=== PATIENT | female | born 1965 | race Caucasian/White ===

== ENCOUNTER → 2018-06-11 13:46 | Outpatient (CLI) | payer OTHER, SELFPAY ==
--- OUTSIDE RECORDS SUMMARY | 2018-09-13 01:32 | XMS RPT_ITS ---
:1965 Author Organization OHIP Support Name Relationship Address Phone [facility] Unavailable [address] + [place] [address] EM DANIS Unavailable [address] + [place] [address] HOOK DANIS Unavailable [address] + [place] [address] EM JENNI Unavailable [address] + [place] [address] EM RAYCE Unavailable [address] + [place] [address] LORIE GUZMAN Unavailable [address] + [place] [address] EM DANIS Unavailable [address] + [place] [address] HOOK, JENNI Unavailable [address] + [place] [address] EM, RAYCE Unavailable [address] + [place] [address] LORIE GUZMAN Unavailable [address] + [place] [address] EM, DANIS Unavailable [address] + [place] [address] EM, JENNI Unavailable [address] + [place] [address] EM, RAYCE Unavailable [address] + [place] [address] JANETT GUZMANE Unavailable [address] + [place] [address] HOOK, DANIS Unavailable [address] + [place] [address] HOOK, JENNI Unavailable [address] + [place] [address] HOOK, RAYCE Unavailable [address] + [place] [address] JANETT GUZMANE Unavailable [address] + [place] [address] HOOK, DANIS Unavailable [address] + [place] [address] HOOK, JENNI Unavailable [address] + [place] [address] HOOK, RAYCE Unavailable [address] + [place] [address] CORNELIUS GUZMANZIE Unavailable [address] + [place] [address] HOOK, DANIS Unavailable [address] + [place] [address] HOOK, JENNI Unavailable [address] + [place] [address] HOOK, RAYCE Unavailable [address] + [place] [address] LORIE GUZMAN Unavailable [address] + [place] [address] HOOK, DANIS Unavailable [address] + [place] [address] HOOK, JENNI Unavailable [address] + [place] [address] HOOK, RAYCE Unavailable [address] + [place] [address] CORNELIUS GUZMANZIE Unavailable [address] + [place] [address] HOOK, DANIS Unavailable [address] + [place] [address] HOOK, JENNI Unavailable [address] + [place] [address] HOOK, RAYCE Unavailable [address] + [place] [address] LORIE GUZMAN Unavailable [address] + [place] [address] HOOK, DANIS Unavailable [address] + [place] [address] HOOK, JENNI Unavailable [address] + [place] [address] HOOK, RAYCE Unavailable [address] + [place] [address] LORIE GUZMAN Unavailable [address] + [place] [address] HOOK, DANIS Unavailable [address] + [place] [address] HOOK, JENNI Unavailable [address] + [place] [address] HOOK, RAYCE Unavailable [address] + [place] [address] LORIE GUZMAN Unavailable [address] + [place] [address] HOOK, DANIS Unavailable [address] + [place] [address] HOOK, JENNI Unavailable [address] + [place] [address] HOOK, RAYCE Unavailable [address] + [place] [address] LORIE GUZMAN Unavailable [address] + [place] [address] HOOK, DANIS Unavailable [address] + [place] [address] HOOK, JENNI Unavailable [address] + [place] [address] EM, RAYCE Unavailable [address] + [place] [address] LORIE GUZMAN Unavailable [address] + [place] [address] HOOK, DANIS Unavailable [address] + [place] [address] HOOK, JENNI Unavailable [address] + [place] [address] HOOK, RAYCE Unavailable [address] + [place] [address] CORNELIUS GUZMANZIE Unavailable [address] + [place] [address] HOOK, DANIS Unavailable [address] + [place] [address] HOOK, JENNI Unavailable [address] + [place] [address] HOOK, RAYCE Unavailable [address] + [place] [address] GUZMANCORNELIUS HYDEZIE Unavailable [address] + [place] [address] HOOK, DANIS Unavailable [address] + [place] [address] HOOK, JENNI Unavailable [address] + [place] [address] HOOK, RAYCE Unavailable [address] + [place] [address] CORNELIUS GUZMANZIE Unavailable [address] + [place] [address] HOOK, DANIS Unavailable [address] + [place] [address] HOOK, JENNI Unavailable [address] + [place] [address] HOOK, RAYCE Unavailable [address] + [place] [address] CORNELIUS GUZMANZIE Unavailable [address] + [place] [address] HOOK, DANIS Unavailable [address] + [place] [address] HOOK, JENNI Unavailable [address] + [place] [address] HOOK, RAYCE Unavailable [address] + [place] [address] THOMAS LORIE Unavailable [address] + [place] [address] Care Team Providers Name Role Phone Angelia Rodríguez Attending Unavailable Angelia Rodríguez Referring Unavailable GARLAND FLOWERS Primary Care Unavailable EVON VALDEZ MD Attending Unavailable JOANN OLIVER [facility] Unavailable EVON VALDEZ MD Attending Unavailable JOANN OLIVER [facility] Unavailable EVON VALDEZ MD Attending Unavailable EVON VALDEZ MD Attending Unavailable PHILLIP OLIVER, [facility] Attending Unavailable JOANN OLIVER [facility] Unavailable PHILLIP OLIVER, [facility] Attending Unavailable PHILLIP OLIVER, [facility] Attending Unavailable JOANN OLIVER, [facility] Unavailable PHILLIP OLIVER, [facility] Attending Unavailable EVON VALDEZ MD Attending Unavailable JOANN OLIVER [facility] Unavailable JAONN OLIVER [facility] Unavailable EVON VALDEZ MD Attending Unavailable EVON VALDEZ MD Referring Unavailable JOANN OLIVER [facility] Unavailable EVON VALDEZ MD Attending Unavailable EVON VALDEZ MD Referring Unavailable EVON VALDEZ MD Attending Unavailable JOANN OLIVER [facility] Unavailable EVON VALDEZ MD Attending Unavailable JOANN OLIVER [facility] Unavailable EVON VALDEZ MD Attending Unavailable JOANN OLIVER [facility] Unavailable EVON VALDEZ MD Attending Unavailable EVON VALDEZ MD Attending Unavailable JOANN OLIVER [facility] Unavailable EVON VALDEZ MD Attending Unavailable EVON VALDEZ MD Attending Unavailable JOANN OLIVER~4503, [facility] Unavailable EVON VALDEZ MD Attending Unavailable JOANN OLIVER [facility] Unavailable EVON VALDEZ MD Attending Unavailable JOANN OLIVER [facility] Unavailable EVON VALDEZ MD Attending Unavailable EVON VALDEZ MD Attending Unavailable JOANN OLIVER [facility] Unavailable JOANN OLIVER~7347, [facility] Unavailable EVON VALDEZ MD Attending Unavailable EVON VALDEZ MD Attending Unavailable JOANN OLIVER~8297, [facility] EVON VALDEZ MD Attending Unavailable JOANN OLIVER [facility] Unavailable EVON VALDEZ MD Attending Unavailable JOANN OLIVER~6121, JOANN YEE Primary Care Unavailable YEE DAVID MD Primary Care Unavailable YEE DAVID MD Primary Care Unavailable PROBLEMS PROBLEMS DATE TYPE CONDITION / CODE ATTENDING STATUS SOURCE 07/11/2018 Unknown R30.0 - Dysuria Angelia Rodríguez Active [place] / R30.0(ICD-10) Repository PROCEDURES PROCEDURES No Procedure Records FoundRESULTS RESULTS OBSOLETE Observed: 07/13/2018 Status: COMPLETED Source: [place] 12:00 AM [facility] REPOSITORY Refill (OTOLST) MASON STRICKLAND ([id number]) 1965 F Date Time Provider Department 07/13/18 SAGE THORPE) OTOLSEstevan During your visit today, we recorded the following information about you: Mary Mckeon 07/15/2018 9:11 AM Signed VARSHA 03/06/17. Thank you, Mary Thorpe RN MS, ABNORMAL PSYCHOLOGY TEACHER.SUPERVISOR WEAVING 07/15/2018 11:46 AM Signed > 1 year since last office visit Patient can discuss the need to continue this medication with her PCP or return for follow up. Mary Mckeon 07/15/2018 11:56 AM Signed Please contact patient-refill for famotidine was NOT sent. Per Claudette Thorpe > 1 year since last office visit. Patient can discuss the need to continue medication with PCP or return to office for f/u. Thank you, Mary Durant 07/15/2018 1:17 PM Signed Called patient and left message with . Allergies As of Date: 07/13/2018 Noted Allergy Reaction MORPHINE 06/13/2010 7 - Swelling BACTRIM (SULFAMETHOXAZOLE) 12/08/2009 11 - Vomiting Comments: Flu like symptoms Date Reviewed: 03/06/2017 Reviewed by: Felicitas Lainez RN - Fully Assessed Reason for Visit: Refill Request [94] Prescriptions as of 07/13/2018 Sig: FAMOTIDINE 20 MG TABLET TAKE 1 TABLET BY MOUTH AT BED* LIFITEGRAST 5 % EYE DROPS IN * Use 1 Drop in eyes twice kristel* CELECOXIB 200 MG CAPSULE Take one capsule by mouth one* CARBOXYMETHYLCELLULOSE SODIUM* 1 Drop as needed. Up to 4-5 t* CYCLOSPORINE 0.05 % EYE DROPS* Use 1 Drop in both eyes twice* DEXLANSOPRAZOLE 60 MG CAPSULE* Take by mouth once daily. * SERTRALINE 50 MG TABLET Take 100 mg by mouth once patti* * BIOTIN 2,500 MCG TABLET Take 2,500 mcg by mouth twice* * FIBERZYME CONCENTRATE-HP ORAL Take 2 tablets by mouth once * * TROSPIUM ER 60 MG CAPSULE,EXT* Take one(1) tablet daily. * AMITIZA 24 MCG CAPSULE Take one(1) tablet daily. Problem List As Of Date 07/13/2018 Noted Resolved Fibromyalgia [M79.7] INVALID FOR* Arthralgia of multiple joints [M25.50] INVALID FOR* Myalgia [M79.10] INVALID FOR* Fatigue [R53.83] INVALID FOR* Anxiety [F41.9] INVALID FOR* Encounter for long-term (current) use of medica*INVALID FOR* Encounter Status:Closed by MARY MCKEON on 07/15/18 Observed: 06/11/2018 Status: F Source: GEE CULTURE, URINE 1:00 PM [facility] REPOSITORY LOOKING FOR DIANNE IN THE URINE Urine Culture NO YEAST ISOLATED ORGANISM 1: Mixed Gram Positive Organisms Gunpowder Count 1000-10,000 MIX CULTURE Mixed contaminants. Submit a new specimen if indicated. Performed By: #### [id number] #### [facility] [place], [address] MISCELLANEOUS LAB Collected: 06/11/2018 Status: F Source: GEE PROCEDURE 1:00 PM [facility] REPOSITORY Order Comment: Test(s) Ordered: #[id number] UREAPLASMA/MYCOPLASMA URINE RF TYPE CODE TESTS RESULT OUT OF RANGE REFERENCE UNITS LAB [id number] Normal [facility] [facility] LAB TEST Result Comment: TEST RESULT LIMITS Ureaplasma/Mycoplasma hominis Ureaplasma urealyticum Negative Mycoplasma hominis Negative TESTING PERFORMED AT [facility]. ORIGINAL REPORT ON FILE IN LAB CONTAINS ADDITIONAL TEST SITE INFORMATION. Performed By: #### [id number] #### [facility] [address] [place], [place], [id number] ANESTHESIA Observed: 04/17/2018 Status: F Source: [facility] 2:25 PM [facility] REPOSITORY Patient: MASON STRICKLAND Age: 53 years Sex: Female : 1965 Associated Diagnoses: None Author: PATRICE RICHEY CRNA DIAGNOSIS: menopasual bleeding Preoperative Information NPO greater than 8 hours Anesthesia history Patient's history: negative. Family's history: negative. Review of Systems ALL SYSTEMS REVIEWED: CV, PULM, GI, , NEURO, HEPATIC, HEME, ENDO, PSYCH, MS HISTORY/ROS: palpatations, GERD Health Status Allergies: Allergies (2) Active Reaction Bactrim DOES NOT WORK FOR PATIENT morphine SWELLING AT THE SITE OF INJECTION Current medications: Home Medications (8) Active biotin 2.5 mg oral tablet 2.5 mg = 1 tabs, ORAL, QHS Culturelle Digestive Health oral capsule 1 caps, ORAL, QHS Dexilant 60 mg oral delayed release capsule 60 mg = 1 cap(s), ORAL, DAILY FiberCon 2 tabs, ORAL, QHS Pepcid 20 mg oral tablet 20 mg = 1 tabs, ORAL, QHS trospium 60 mg oral capsule, extended release 60 mg = 1 caps, ORAL, DAILY Xiidra 5% ophthalmic solution 1 drops, Both Eyes, BID Zoloft 50 mg oral tablet 50 mg = 1 tabs, ORAL, QHS LABORATORY DATA Chemistry BMP Plus Mag No qualifying data available. Hematology CBC brief [address] HCT: 40.2 % (03/15/18) Coagulation PT INR [address] No qualifying data available. Test No qualifying data available. Histories Past Medical History: Past Medical History Fibromyalgia Arthritis Rheumatism PVD (peripheral vascular disease) Procedure history: Mammogram: 01/25/18 Colonoscopy: 11/22/17 Endoscopy: 09/2017 PAP/HPV: 02/07/17 Cystoscopy.: 08/19/15 delivery only;. RHINOPLASTY Classical Section ABLATION OTOP[LASTY D&C D and C Cystoscopy Social History Social & Psychosocial Habits Alcohol 03/15/2018 Use: Current Type: Beer, Wine Frequency: 1-2 times per month Employment/School Comment: Graduate Degree - 01/07/2015 18:01 - Chantel Washington MA Other 01/07/2015 Name: Personal safety: feels safe at home, 5 people live in the home Substance Abuse 07/06/2013 Risk Assessment: Denies Substance Abuse Tobacco 03/05/2018 Use: Never (less than 100 in l . Physical Examination VS/Measurements VITALS Vital Signs (last value in last 48 hours) Temperature Oral: 36.6 degC (03/18/18 12:15:00) Respiratory Rate: 18 br/min (03/18/18 12:15:00) Heart Rate Monitored: 96 bpm (03/18/18 12:15:00) Systolic Blood Pressure: 146 mmHg High (03/18/18 12:15:00) Diastolic Blood Pressure: 89 mmHg (03/18/18 12:15:00) SpO2: 100 % (03/18/18 12:15:00) Height and Weight (last value in last 48 hours) Height/Length Dosin.48 cm (03/18/18 12:15:00) Weight Dosin.5 kg (03/18/18 12:15:00) Airway: Mallampati classification: I (soft palate, fauces, uvula, pillars visible). Review / Management Documentation reviewed: Current records. Assessment and Plan [place] [employer] Anesthesiologists (ASA) physical status classification: Class II. Anesthetic Preoperative Plan Anesthetic technique: General anesthesia. Induction: intravenously. Maintenance airway: Laryngeal mask airway. Special monitoring: Standard ASA monitors. Postoperative pain management: Per surgeon. Risks discussed: nausea, vomiting, headache, sore throat. Informed consent: signed by patient. Electronically Co-Signed by: BETY LOO MD on 04/17/2018 14:24 EDT PHONE MSG Observed: 03/29/2018 Status: C Source: [facility] 9:03 AM [facility] REPOSITORY From: Makayla Montilla To: Chantel Washington MA; Sent: 03/28/2018 16:09:35 EDT Subject: uti after surgery pt had surgery with you on 03/18 and feels like she has a uti now. she has freq. urination, burning and pressure. symptoms started yesterday. pt is allergic to bactrim and the only thing that works for pt is cipro. [facility] [phone] From: Chantel Washington MA To: EVON VALDEZ MD; Sent: 03/28/2018 16:16:59 EDT Subject: RE: uti after surgery Rx on file, forward back with instructions From: EVON VALDEZ MD To: Chantel Washington MA; Sent: 03/28/2018 17:58:24 EDT Subject: Med Management Submitted: Order:ciprofloxacin (ciprofloxacin 250 mg oral tablet) 1 tabs ORAL [id number] Qty: 14 tabs Duration: 7 days Refills: 0 Substitutions Allowed [id number] [place] Signed by EVON VALDEZ MD 03/28/2018 17:58:00 lm on the patients voicemail that a Rx was sent to her pharmacy last night, to call if she is needs to speak with me AMB PHYSICIAN Observed: 03/26/2018 Status: F Source: [facility] PROGRESS NOTE 1:08 PM [facility] REPOSITORY Patient: MASON STRICKLAND Age: 53 years Sex: Female : 1965 Associated Diagnoses: None Author: EVON VALDEZ MD Subjective - patient had spotting, uterine biopsy attempted, resulted in DnC, patient reports bright pink/brown discharge/fluid from vagina that accompanies bowel movements. Patient felt significant fat igue and uterine cramping after procedure, but states that it has improved. Cramping disappeared this past . No other concerns. Objective - patient in no acute distress, alert and oriented, content, interactive. Pathology results negative for endometrial cancer. Assessment - patient stable Diagnosis - postmenopausal bleeding Plan - follow-up in one year, routine health maintenance (colonoscopy, pap smear, mammogram, annual exam) discussed need for f/u sooner if has recurrent bleeding. AMB OFFICE-PROGRESS Observed: 03/26/2018 Status: P Source: [facility] NOTES-PROVIDER 11:47 AM [facility] REPOSITORY Patient: MASON STRICKLAND Age: 53 years Sex: Female : 1965 Associated Diagnoses: None Author: TAMMY DO Subjective - patient had spotting, uterine biopsy attempted, resulted in DnC, patient reports bright pink/brown discharge/fluid from vagina that accompanies bowel movements. Patient felt significant fat igue and uterine cramping after procedure, but states that it has improved. Cramping disappeared this past . No other concerns. Objective - patient in no acute distress, alert and oriented, content, interactive. Pathology results negative for endometrial cancer. Assessment - patient stable Diagnosis - postmenopausal bleeding Plan - follow-up in one year, routine health maintenance (colonoscopy, pap smear, mammogram, annual exam) PACU PHASE I - MAIN Observed: 03/21/2018 Status: C Source: [facility] OR 12:03 PM [facility] REPOSITORY PACU Phase I - Main OR Summary Primary Physician: EVON VALDEZ MD Finalized Date/Time: 03/21/18 12:02:59 Pt. Name: MASON STRICKLAND /Sex: 1965 Female Med Rec #: [id number] Physician: Financial #: [id number] Pt. Type: A Room/Bed: / Admit/Disch: 03/18/18 12:22:00 - 03/18/18 23:59:59 Institution: PACU I - Case Times - Main OR Entry 1 In PACU I 03/18/18 15:10:00 Ready for Transfer 03/18/18 15:07:00 / Discharge Last Modified By: Surinder SEARS, Alisa 03/18/18 15:13:49 Finalized By: Ebony Kramer Document Signatures Signed By: Vikki Kerns RN 03/18/18 15:09 Alisa Cadena RN 03/18/18 15:13 Ebony Kramer 03/21/18 12:02 ANESTHESIA Observed: 03/18/2018 Status: F Source: [facility] 7:35 PM [facility] REPOSITORY Patient: MASON STRICKLAND Age: 53 years Sex: Female : 1965 Associated Diagnoses: None Author: BETY LOO MD Postoperative Information Time Seen: Date & Time 03/18/2018 15:05:00. Assessment Postanesthesia assessment Vitals: Vital Signs (last value in last 48 hours) Temperature Oral: 36.6 degC (03/18/18 12:15:00) Temperature Temporal Artery: 36.8 degC (03/18/18 15:15:00) Respiratory Rate: 16 br/min (03/18/18 15:15:00) Heart Rate Monitored: 100 bpm (03/18/18 15:15:00) Systolic Blood Pressure: 137 mmHg (03/18/18 15:15:00) Diastolic Blood Pressure: 86 mmHg (03/18/18 15:15:00) SpO2: 98 % (03/18/18 15:15:00). Mental status: at preoperative baseline. Respiratory support: normal oxygenation and ventilation. Pain: controlled. Nausea status: absence of nausea and vomiting. Postoperative hydration status: euvolemic. Notes: normothermia. ANESTHESIA Observed: 03/18/2018 Status: F Source: [facility] 7:31 PM [facility] REPOSITORY Patient: MASON STRICKLAND Age: 53 years Sex: Female : 1965 Associated Diagnoses: None Author: BETY LOO MD Postoperative Information Time Seen: Date & Time 03/18/2018 15:05:00. Post Operative Info: Post operative day: Post Anesthesia Care Unit. Patient location: PACU. Assessment Postanesthesia assessment Vitals: Vital Signs (last value in last 48 hours) Temperature Oral: 36.6 degC (03/18/18 12:15:00) Temperature Temporal Artery: 36.8 degC (03/18/18 15:15:00) Respiratory Rate: 16 br/min (03/18/18 15:15:00) Heart Rate Monitored: 100 bpm (03/18/18 15:15:00) Systolic Blood Pressure: 137 mmHg (03/18/18 15:15:00) Diastolic Blood Pressure: 86 mmHg (03/18/18 15:15:00) SpO2: 98 % (03/18/18 15:15:00). Mental status: at preoperative baseline. Respiratory support: normal oxygenation and ventilation. Pain: controlled. Nausea status: absence of nausea and vomiting. Postoperative hydration status: euvolemic. Notes: normothermia. PACU PHASE II - Observed: 03/18/2018 Status: F Source: [facility] OR 3:30 PM [facility] REPOSITORY PACU Phase II - Main OR Summary Primary Physician: EVON VALDEZ MD Finalized Date/Time: 03/18/18 15:30:18 Pt. Name: MASON STRICKLAND Meka Treadwell/Sex: 1965 Female Med Rec #: [id number] Physician: Financial #: [id number] Pt. Type: A Room/Bed: / Admit/Disch: 03/18/18 12:22:00 - Institution: PACU II - Case Times - Main OR Entry 1 In PACU II 03/18/18 15:05:00 Ready for PACU II n/a Discharge Discharge from PACU 03/18/18 15:30:00 II Last Modified By: Bev Appiah LPN 03/18/18 15:30:16 Finalized By: Bev Appiah LPN Document Signatures Signed By: Bev Appiah LPN 03/18/18 15:30 OR NURSING RECORD - Observed: 03/18/2018 Status: F Source: [facility] OR 2:08 PM [facility] REPOSITORY OR Nursing Record - Main OR Summary Primary Physician: EVON VALDEZ MD Finalized Date/Time: 03/18/18 14:08:07 Pt. Name: MASON STRICKLAND /Sex: 1965 Female Med Rec #: [id number] Physician: Financial #: [id number] Pt. Type: A Room/Bed: / Admit/Disch: 03/18/18 12:22:00 - Institution: Transport to OR - Main OR Entry 1 By Bess Gordon RN, Smith Date/Time Leaving 03/18/18 13:29:00 CSA, Tonya Preop Siderails Up? Yes Last Modified By: Bess Gordon RN 03/18/18 13:47:13 Case Times - Main OR Entry 1 Patient In Room Time 03/18/18 13:30:00 Out Room Time 03/18/18 14:07:00 Anesthesia Facility Times Induction Time 03/18/18 13:36:00 Stop Time 03/18/18 14:06:00 [place] Protocol Yes Completed Surgery Start Time 03/18/18 13:45:00 Stop Time 03/18/18 13:57:00 Last Modified By: Bess Gordon RN 03/18/18 14:08:01 Surgical Procedures - Main OR Entry 1 Procedure Hysteroscopy Modifiers None Surgeon Procedure DIAGNOSTIC HYSTEROSCOPY Primary Procedure Yes Description D&C Primary Surgeon EVON VALDEZ MD Start 03/18/18 13:45:00 Stop 03/18/18 13:57:00 Anesthesia Type General Surgical Service SN - Obstetric/Gynecology Last Modified By: Bess Gordon RN 03/18/18 13:59:41 Case Attendance - Main OR Entry 1 Entry 2 Entry 3 Case Attendee EVON VALDEZ MD, MD, PATRICE TEE CRNA Role Performed Surgeon Primary Anesthesiologist Primary Anesthesia Asst/CONFIGURATION MANAGEMENT SPECIALIST Time In 03/18/18 13:30:00 03/18/18 13:30:00 03/18/18 13:30:00 Time Out 03/18/18 14:07:00 03/18/18 14:07:00 03/18/18 14:07:00 Procedure Hysteroscopy(None) Hysteroscopy(None) Hysteroscopy(None) Last Modified By: Bess Gordon RN 03/18/18 Saul Gordon RNn 03/18/18 Heidi RN, Bess 03/18/18 14:08:03 14:08:03 14:08:03 Entry 4 Entry 5 Entry 6 Case Attendee Tonya Benson CSA, RN, Liset Brandon Performed Pai Gow Dealer Community Director Primary Scrub Primary Time In 03/18/18 13:30:00 03/18/18 13:30:00 03/18/18 13:30:00 Time Out 03/18/18 14:07:00 03/18/18 14:07:00 03/18/18 14:07:00 Procedure Hysteroscopy(None) Hysteroscopy(None) Hysteroscopy(None) Last Modified By: Bess Gordon RN 03/18/18 Heidi RN, Bess 03/18/18 Heidi SEARS, Bess 03/18/18 14:08:03 14:08:03 14:08:03 General Case Data - Main OR Entry 1 Case Information OR OR 11 Schedule Type Scheduled Case Level Level 5 Wound Class Clean-Contaminated Specialty SN - ASA Class 2 Obstetric/Gynecology Procedure History Yes Documented Diagnosis Preop Diagnosis MENOPAUSAL BLEEDING Postop Diagnosis MENOPAUSAL BLEEDING Last Modified By: Bess Gordon RN 03/18/18 13:48:10 Delays - Main OR Entry 1 Delay Reason No Delay Last Modified By: Bess Gordon RN 03/18/18 13:48:16 Patient Positioning - Main OR Entry 1 Procedure Hysteroscopy(None) Body Position Lithotomy Left Arm Position Extended on padded arm Right Arm Position Extended on padded arm board board Left Leg Position Secured in Stirrup Right Leg Position Secured in Stirrup Feet Uncrossed? Yes Press Points Checked Yes By PATRICE RICHEY CRNA, Positioning Devices Padded Armboard, Tonya Benson CSA, Stirrups, Candy Cane Snow RN, Megan Last Modified By: Bess Gordon RN 03/18/18 13:48:25 Skin Prep - Main OR Entry 1 Procedure Hysteroscopy(None) Prep Area Perineal Prep Agents Betadine Solution By Tonya Benson CSA Hair Removal Last Modified By: Bess Gordon RN 03/18/18 13:48:35 Counts Verification - Main OR Entry 1 Entry 2 Count Type Initial Final Closing Count Participants Bess Gordon RN, Heidi SEARS, Chloé Kellogg Doreen Heinrichs, Doreen Count Status Correct Correct Items Counted Sponges, Sharps Sponges, Sharps Surgeon Notified n/a Yes Closing Count Correct Last Modified By: Bess Gordon RN 03/18/18 Bess Gordon RN 03/18/18 13:48:44 13:57:28 Counts Action Taken - Main OR NOT APPLICABLE Entry 1 Surgeon Notified No Count Incorrect Last Modified By: Cautery - Main OR NOT APPLICABLE Entry 1 Last Modified By: Catheters, Drains, Tubes - Main OR NOT APPLICABLE Entry 1 Last Modified By: Medication Administration - Main OR NOT APPLICABLE Entry 1 Last Modified By: Cultures & Specimens - Main OR Entry 1 Specimens Taken Routine Body Site EMC Last Modified By: Bess Gordon RN 03/18/18 13:49:03 Skin Assessment - Main OR Entry 1 Skin Integrity at Intact Skin Abnormality at No Incision Site: Incision Site: General/Overall WNL Skin Integrity: Last Modified By: Bess Gordon RN 03/18/18 13:49:07 Surgical Irrigation - Main OR Entry 1 Irrigant Saline Last Modified By: Bess Gordon RN 03/18/18 13:49:11 Patient Care Devices - Main OR NOT APPLICABLE Entry 1 Last Modified By: Dressing/Packing - Main OR Entry 1 Wound Closure Not applicable Type Dressing Items Stephanie-Pad, Mesh Underwear Last Modified By: Bess Gordon RN 03/18/18 13:49:21 Departure from OR - Main OR Entry 1 Present on Depart Oxygen Post-op Destination PACU Report Given To Delmis Brock RN Last Modified By: Bess Gordon RN 03/18/18 13:57:34 Case Comments <None> Finalized By: Bess Gordon RN Document Signatures Signed By: Bess Gordon RN 03/18/18 14:08 SURGICAL PATH REPORT Observed: 03/18/2018 Status: F Source: [facility] 1:59 PM [facility] REPOSITORY [facility] Department of Pathology [address] [place] [address] Name: MASON STRICKLAND : 1965 [facility] [id number] Number: Gender: Female Location: [facility] Admit 53 years Attending EVON VALDEZ MD Age: Provider: Ordering EVON VALDEZ MD Provider: Consulting: Surgical Pathology Report ACCESSION: COLLECTED DATE/TIME: RECEIVED DATE/TIME: PATHOLOGIST: [id number] 03/18/2018 13:59 EDT 03/18/2018 14:10 EDT MORENA TRIVEDI Final Diagnosis EMC: - MOSTLY BLOOD WITH CERVICAL GLANDULAR TISSUE AND BENIGN DETACHED FRAGMENTS OF GLANDULAR EPITHELIUM. - DEFINITIVE ENDOMETRIAL TISSUE IS NOT IDENTIFIED. MORENA TRIVEDI PATHOLOGIST (Electronic Signature) Date Verified 03/19/2018 TS Clinical Data PREOP DIAGNOSIS: MENOPAUSAL BLEEDING POSTOP DIAGNOSIS: SAME PROCEDURE: HYSTEROSCOPY D&C SPECIMEN: EMC Gross Description Received in formalin are multiple irregular oropeza feathery segments of soft tissue. The specimen is filtered and has a filtrate aggregate dimension of 2.0 x 1.5 x 0.5 cm. The specimen is entirely submitted in one cassette. MP:felicitas 03/18/2018 Codes CPT CODE: 04370 Print Date/ 03/22/2018 13:50 EDT Number: Time: Performed By: #### [id number] #### [facility] General Laboratory Services [address] [place] [address] Rides Attendant: Kalen Alva MD PREOP - MAIN OR Observed: 03/18/2018 Status: F Source: [facility] 12:56 PM [facility] REPOSITORY Preop - Main OR Summary Primary Physician: EVON VALDEZ MD Finalized Date/Time: 03/18/18 12:56:19 Pt. Name: MASON STRICKLAND/Sex: 1965 Female Med Rec #: [id number] Physician: Financial #: [id number] Pt. Type: A Room/Bed: / Admit/Disch: 03/18/18 12:22:00 - Institution: Preop - Case Times - Main OR Entry 1 Patient Arrival Time 03/18/18 12:15:00 Patient Ready for 03/18/18 12:56:00 Surgery Last Modified By: Liliana Longoria RN 03/18/18 12:56:15 Finalized By: Liliana Longoria RN Document Signatures Signed By: Liliana Longoria RN 03/18/18 12:56 HISTORY AND Observed: 03/15/2018 Status: C Source: [facility] 12:13 PM [facility] REPOSITORY Patient: MASON STRICKLAND Age: 53 years Sex: Female : 1965 Associated Diagnoses: None Author: ROSELINE ROGEL CNP Basic Information Source of history: Self. Chief Complaint Menopausal bleeding History of Present Illness This pleasant 53-year-old female reports having a uterine ablation done 11 years ago. She has had no bleeding over the past 10 years. Over the past years she has experienced intermittent brown spottin g. She states this is irregular in nature. It last from 1 to several days. She had an ultrasound in January 2017 which revealed a thickened endometrium. Recently she had an endometrial biopsy done. This was inconclusive. She had a Pap done in 2017 with no abnormal findings. The patient denies pelvic pain. Dr. Valdez is recommending a diagnostic hysteroscopy D&C. The patient is agreeable. The patient denies any anesthesia problems. Histories Past Medical History: 1. Frequent headaches 2. History of palpitations 3. Acid reflux 4. IBS 5. History of stomach ulcers 6. Interstitial cystitis 7. Anxiety 8. Osteoarthritis 9. Fibromyalgia Family History: Heart disease Father () Breast cancer. Other Procedure history: Mammogram on 01/25/2018 at 52 Years. Colonoscopy on 11/22/2017 at 52 Years. Endoscopy in the month of 09/2017 at 52 Years. PAP/HPV on 02/07/2017 at 51 Years. Cystoscopy. (22887) on 08/19/2015 at 50 Years. ABLATION. . delivery only; (69368). Classical Section (74.0). Comments: 07/06/2013 12:12 - Devaughn SEARS, Maru X3 Cystoscopy. D and C. D&C. OTOP[LASTY. RHINOPLASTY. Social History Social & Psychosocial Habits Alcohol 03/15/2018 Use: Current Type: Beer, Wine Frequency: 1-2 times per month Employment/School Comment: Graduate Degree - 01/07/2015 18:01 - Chantel Washington MA Other 01/07/2015 Name: Personal safety: feels safe at home, 5 people live in the home Substance Abuse 07/06/2013 Risk Assessment: Denies Substance Abuse Tobacco 03/05/2018 Use: Never (less than 100 in l . Patient is . She is a speech therapist. Health Status Include (Selected) Allergic Reactions (All) Severity Not Documented Bactrim- Does not work for patient. Morphine- Swelling at the site of injection.. Current medications: Home Meds (ST) Home Medications (8) Active biotin 2.5 mg oral tablet 2.5 mg = 1 tabs, ORAL, QHS Culturelle Digestive Health oral capsule 1 caps, ORAL, QHS Dexilant 60 mg oral delayed release capsule 60 mg = 1 cap(s), ORAL, DAILY FiberCon 2 tabs, ORAL, QHS Pepcid 20 mg oral tablet 20 mg = 1 tabs, ORAL, QHS trospium 60 mg oral capsule, extended release 60 mg = 1 caps, ORAL, DAILY Xiidra 5% ophthalmic solution 1 drops, Both Eyes, BID Zoloft 50 mg oral tablet 50 mg = 1 tabs, ORAL, QHS Review of Systems Constitutional: No fever. Eye: Patient wears glasses.. Ear/Nose/Mouth/Throat: No nasal congestion, No sore throat. Respiratory: No shortness of breath, No cough. Cardiovascular: Patient recently saw Dr. seo due to an elevated resting heart rate and palpitations. She had a stress test done 2 weeks ago with no abnormal findings. She wore a 3 week Holter monitor . She is unaware of these findings., No chest pain, No peripheral edema. Gastrointestinal: Diarrhea, Constipation, Heartburn, No abdominal pain. Genitourinary: Negative except as documented in history of present illness, No dysuria, No hematuria. Hematology/Lymphatics: No bleeding tendency. Endocrine: No cold intolerance, No heat intolerance. Immunologic: No recurrent fevers. Musculoskeletal: Joint pain, No back pain, No muscle pain. Integumentary: No rash, No breakdown, No skin lesion. Neurologic: Alert and oriented X4, Headache. Psychiatric: Anxiety. Physical Examination VS/Measurements Vital Signs (last 24 hrs) Last Charted Heart Rate Peripheral 87 bpm (MAR 15 08:13) Resp Rate 16 br/min (MAR 15:) SBP 128 mmHg (MAR 15 08:13) DBP 75 mmHg (MAR 15 08:) Weight 68 kg (MAR 15 08:13) Height 157.48 cm (MAR 15 08:13) BMI 27.42 (MAR 15 08:13) General: Alert and oriented. Eye: Pupils are equal, round and reactive to light. HENT: Normocephalic, Normal hearing. Neck: Supple, Non-tender. Respiratory: Lungs are clear to auscultation, Respirations are non-labored, Breath sounds are equal. Cardiovascular: Normal rate, Regular rhythm, No murmur, Good pulses equal in all extremities, Normal peripheral perfusion. Gastrointestinal: Soft, Non-tender, Non-distended, Normal bowel sounds. Genitourinary: No costovertebral angle tenderness. Lymphatics: No lymphadenopathy neck, axilla, groin. Musculoskeletal: Normal range of motion, Normal strength, No tenderness, No swelling, No deformity, Normal gait. Integumentary: Warm, Dry, [place]. Neurologic: Alert, Oriented, Normal sensory, Normal motor function. Cognition and Speech: Oriented, Speech clear and coherent. Psychiatric: Cooperative, Appropriate mood & affect. Review / Management Laboratory Results Today's Lab Results : Laboratory 03/15/2018 8:35 EDT HCT 40.2 % NORMAL Impression and Plan Diagnosis 1. Menopausal bleeding 2. Palpitationspatient to obtain cardiac clearance with Dr. Harrell due to recent cardiac workup 3. Preop exam. Plan Pre-op diagnosis menopausal bleeding Scheduled for surgery with Dr. Valdez on 03/18/18 for a diagnostic hysteroscopy D&C BMI 27.42 This note was completed with voice recognition technology. Verbal misinterpretations may occur. Electronically Co-Signed by: ROSELINE ROGEL CNP on 03/15/2018 12:13 EDT PREADMISSION TESTING Observed: 03/15/2018 Status: C Source: [facility] PROGRESS NOTE 10:50 AM [facility] REPOSITORY Notification of clearance request (letter) faxed to Dr Harrell's office for review. Dr Harrell's office (Seda) notified of request for cardiac clearance. Office notified that Patient is scheduled for surgery on 03/18/18. Notification of request for cardiac clearance faxed to Dr Valdez's office for review. Dr Valdez's office (Zakiya) notified of fax and request for cardiac clearance. Cardiac Clearance obtained from Dr Harrell dated 03/15/18. Copy on chart. HCT Collected: 03/15/2018 Status: F Source: [facility] 9:24 AM [facility] REPOSITORY TYPE CODE TESTS RESULT OUT OF RANGE REFERENCE UNITS LAB 8129 36.0-46.0 % Normal HCT 40.2 Performed By: #### [id number] #### [facility] Laboratory Services [address] [place], [place] [address] Rides Attendant: Kalen Alva MD PHONE MSG Observed: 03/11/2018 Status: C Source: [facility] 4:54 PM [facility] REPOSITORY From: COURTNEY OLIVER, EVON Nascimento To: Makayla Simms; Sent: 03/05/2018 16:01:14 EDT Subject: Schedule OR Diagnostic hysteroscopy, Dilation & curettage for menopausal bleeding Pt called, scheduled for 03/18. PHONE MSG Observed: 02/27/2018 Status: C Source: [facility] 4:22 PM [facility] REPOSITORY From: Bess Valiente To: Chantel Washington MA; Sent: 02/26/2018 10:18:15 EDT Subject: results follow up pt would like to speak with you about results you left her on secureach from last wednesday 02/21. if you could call her back as soon as you could she would appreciate it. [phone] lm on secureach of normal negative results, that the test that secureach was calliing about was not ordered, I have archived that test order, told her that if she has more questions to please call. From: Zakiya Rivera MA To: Chantel Washington MA; Sent: 02/27/2018 16:13:11 EDT Subject: FW: results follow up patient returning call to office stating that the message that you left for her was not the reason why she was calling the office. I did ask the patient if there is something I could help her with and she stated no, that she would rather just speak to you. pt phone: [phone] pt notified that the secureach was a duplicate message Observed: 02/20/2018 Status: F Source: [facility] C GENITAL 6:18 PM [facility] [address] [place] [address] Name: MASON STRICKLAND : 1965 Admitting Provider: Gender: Female Financial [id number] Number: Location: [facility]. Admit 02/04/2018 Date: Discharge 02/04/2018 Date: Microbiology PROCEDURE: C GENITAL SOURCE: VAGINAL BODY SITE: COLLECTED DATE/TIME: 02/04/2018 09:28 EDT RECEIVED DATE/TIME: 02/05/2018 11:16 EDT START DATE/TIME: 02/05/2018 11:17 EDT FREE TEXT SOURCE: ORDERING PHYSICIAN: COURTNEY OLIVER, EVON Nascimento FINAL REPORTS Final Report [] Verified Date/Time: 02/08/2018 09:55 EDT Very rare Normal Vaginal Monika isolated. May not be able to isolate pathogens due to swarming of Proteus species STAINS GS [] Verified Date/Time: 02/05/2018 14:19 EDT Few epithelial cells Rare white blood cells seen. No Organisms seen. L=Low, H= High, *= Abnormal, C=Critical, f=Footnote, c=Corrected, i=Interp Data Name: MASON STRICKLAND Print Date/ 02/20/2018 18:18 EDT Time: Performed By: #### [id number] #### [facility] Laboratory Services [address] [place] [address] Rides Attendant: Kalen Alva MD SURGICAL PATH REPORT Observed: 02/15/2018 Status: F Source: [facility] 4:30 PM [facility] REPOSITORY [facility] Department of Pathology [address] [place] [address] Name: MASON STRICKLAND : 1965 [facility] [id number] Number: Gender: Female Location: [facility]. Admit 52 years Attending EVON VALDEZ MD Age: Provider: Ordering EVON VALDEZ MD Provider: Consulting: Surgical Pathology Report ACCESSION: COLLECTED DATE/TIME: RECEIVED DATE/TIME: PATHOLOGIST: [id number] 02/15/2018 16:30 EDT 02/18/2018 10:28 EDT JHONNY OLIVER, LUZMA Final Diagnosis ENDOMETRIUM, BIOPSY: - FRAGMENTS OF BENIGN SQUAMOUS MUCOSA AND ENDOCERVICAL EPITHELIUM. - NO DEFINITIVE ENDOMETRIUM IS IDENTIFIED. LUZMA BARRY PATHOLOGIST (Electronic Signature) Date Verified 02/19/2018 TS Clinical Data PRE-OP DIAGNOSIS: N95.0 POST-OP DIAGNOSIS: Menopausal bleeding PROCEDURES: Endometrial biopsy SPECIMEN: Endometrial tissue Gross Description Received in formalin are multiple irregular oropeza feathery segments of soft tissue intermixed with mucoid material. The specimen is filtered and has a filtrate aggregate dimension of 0.3 x 0.3 x 0.2 cm. The specimen is submitted entirely in a filtrate bag. AK/cl 02/18/2018 Codes CPT CODE: 10416 Print Date02/19/2018 13:20 EDT Number: Time: Performed By: #### [id number] #### [facility] Laboratory Services [address] [place] [address] Rides Attendant: Kalen Alva MD AMB WH PROCEDURE NOTE Observed: 02/15/2018 Status: F Source: [facility] 3:37 PM [facility] REPOSITORY Patient: MASON STRICKLAND Age: 52 years Sex: Female : 1965 Associated Diagnoses: None Author: VEON VALDEZ MD Diagnosis: perimenopausal bleeding The pt was identified, written consent obtained. The cervix was prepped with Betadyne, grasped with a single toothed tenaculum and a pipelle was passed to 6 cms with tissue obtained. The pt tolerated the procedure well and was given infection/bleeding precautions. GP GC Collected: 02/06/2018 Status: F Source: [facility] 12:03 PM [facility] REPOSITORY TYPE CODE TESTS RESULT OUT OF RANGE REFERENCE UNITS LAB 2073233(LO INC) Normal Genprobe GC Negative Result Comment: This Gonorrhoea assay is being performed via a second generation NAAT that utilizes target capture, small brake form operator mediated amplification and dual kenetic assay technologies. Performed By: #### [id number] #### [facility] Laboratory Services [address] [place] [address] Rides Attendant: Kalen Alva MD GP CHLAM Collected: 02/06/2018 Status: F Source: [facility] 12:03 PM [facility] REPOSITORY TYPE CODE TESTS RESULT OUT OF RANGE REFERENCE UNITS LAB 3162903(LO INC) Normal Genprobe Negative Chlamydia Result Comment: This Chlamydia assay is being performed via a second generation NAAT that utilizes target capture, small brake form operator mediated amplification and dual kenetic assay technologies. Performed By: #### [id number], [id number] #### [facility] [address] [place] [address] Rides Attendant: Kalen Alva MD MAMM DIGITAL SCRN Observed: 01/25/2018 Status: F Source: [facility] BILATERAL 7:27 AM [facility] REPOSITORY Order Comment: Ordered on [facility]# [id number] BILATERAL DIGITAL MAMMOGRAM WITH TOMOSYNTHESIS Clinical History: Screening. Comparison Studies: 12/21/2016, 12/01/2015 Mammographic findings: Standard 2D and tomosynthesis images were reviewed at 1 mm slice thickness. There are scattered areas of fibroglandular density. No suspicious masses or suspicious calcifications are identified in either breast. There has been no significant interval change. The digital mammogram has been reviewed with the aid of CAD. IMPRESSION AND RECOMMENDATION: No mammographic evidence of malignancy. Recommendation is for the patient to return in one year for annual bilateral mammogram. Category 1: Negative False negative rate of mammography is approximately 10 to 20%. Management of a palpable abnormality must be based upon clinical grounds. Result Comment: Technologist: LW Dictated By: BAUTISTA ARREAGA MD Signed By: BAUTISTA ARREAGA MD Signed Out: 01/25/18 07:25:28 PHONE MSG Observed: 12/12/2017 Status: C Source: [facility] 9:00 AM [facility] REPOSITORY From: Makayla Montilla To: Chantel Washington MA; Sent: 12/11/2017 16:31:43 EDT Subject: mmammogram rec pt had her last mammogram in november2016 and her annual was jan 2017. she would like to have her mammogram req now so she can keep her mammograms on track. pt has annual scheduled this year for 02/15. she i s not having any problems. pt would like a call when its ready. pt [phone] Order proposal has been sent to Observed: 07/23/2017 Status: F Source: [facility] C GENITAL 2:06 PM [facility] REPOSITORY [facility] Dept of Laboratory Services [address] [place] [address] Name: MASON STRICKLAND : 1965 Admitting Provider: Gender: Female Financial [id number] Number: Location: Lab DropOff Admit 07/20/2017 Date: Discharge 07/20/2017 Date: Microbiology PROCEDURE: C GENITAL SOURCE: VAGINAL BODY SITE: COLLECTED DATE/TIME: 07/20/2017 12:19 EST RECEIVED DATE/TIME: 07/20/2017 15:22 EST START DATE/TIME: 07/20/2017 15:22 EST FREE TEXT SOURCE: ORDERING PHYSICIAN: COURTNEY OLIVER, EVON Nascimento FINAL REPORTS Final Report [] Verified Date/Time: 07/23/2017 10:12 EST Normal Vaginal Monika isolated. STAINS GS [] Verified Date/Time: 07/20/2017 22:40 EST Moderate Gram Positive Cocci. Many Gram Negative Rods Moderate white blood cells seen. Rare epithelial cells Gram Stain consistent with Bacterial Vaginosis L=Low, H= High, *= Abnormal, C=Critical, f=Footnote, c=Corrected, i=Interp Data Name: MASON STRICKLAND Print Date/ 07/23/2017 14:06 EST Time: Performed By: #### [id number] #### [facility] General Laboratory Services [address] [place], [place] [address] Rides Attendant: Kalen Alva MD PHONE MSG Observed: 07/19/2017 Status: C Source: [facility] 11:08 AM [facility] REPOSITORY From: Angelia Palafox MA To: Chantel Washington MA; Sent: 07/17/2017 15:36:45 EST Subject: add on tomorrow? pt has had BV twice in the last 6 months - brown d/c, burning, discomfort, mild odor. She's wondering if she can come in tomorrow? Hasn't tried anything OTC. pt [phone] From: Chantel Washington MA To: EVON VALDEZ MD; Sent: 07/17/2017 15:46:46 EST Subject: RE: add on tomorrow? will it be ok to add to the electronic installer schedule? From: EVON VALDEZ MD To: Chantel Washington MA; Sent: 07/19/2017 00:30:49 EST Subject: RE: add on tomorrow? Sunday? the patient has been scheduled ALLERGIES ALLERGIES No Allergies Records FoundENCOUNTERS ENCOUNTERS ADMIT/DISCHARGE ACCOUNT NUMBER ADMITTING ENCOUNTER LOCATION SOURCE CLASS 06/11/2018 [id number] Ambulatory [facility] 03/28/2018 [id number] Ambulatory AMBWHSTBuild [facility] ing:[facility] Repository 03/26/2018 [id number] Ambulatory AMBWHMHBuild [place] ing:[facility] General oom: [address] Repository 03/26/2018/03/26/20 [id number] Ambulatory AMBWHMHBuild [facility] 18 ing:AMBWHMHR General oom: [address] Repository 03/18/2018 [id number] Ambulatory [id number] [place] g:[facility] Repository 03/18/2018/03/18/20 [id number] Ambulatory [id number] [facility] 18 g:[facility] Repository 03/17/2018/03/17/20 [id number] Ambulatory AMBWHMHBuild [place] 18 ing:[facility] Repository 03/05/2018 [id number] Ambulatory AMBWHSTBuild [place] ing:[facility]STR General oom: [facility] [place] Repository 03/05/2018/03/05/20 [id number] Ambulatory AMBWHSTBuild [place] 18 ing:AMB[facility]STR General oom: [address] Repository 02/26/2018 [id number] Ambulatory AMBWHMHBuild [place] ing:[facility] Repository 02/26/2018 [id number] Ambulatory AMBWHMHBuild [place] ing:[facility] Repository 02/15/2018 [id number] Ambulatory AMBWHMHBuild [place] ing:[facility] General oom: [facility] Center Repository 02/15/2018/02/16/20 [id number] Ambulatory AMBWHMHBuild [place] 18 ing:[facility] General oom: [address] Center Repository 02/15/2018 [id number] Ambulatory [id number] [place] g:[facility] Repository 02/15/2018/02/16/20 [id number] Ambulatory [id number] [place] 18 g:[facility] Repository 02/04/2018 [id number] Ambulatory AMBWHMHBuild [place] ing:[facility] General oom: [facility] Health Center Repository 02/04/2018/02/05/20 [id number] Ambulatory AMBWHMHBuild [place] 18 ing:[facility]HR General oom: [address] Center Repository 02/04/2018 [id number] Ambulatory [id number] [place] g:[facility] Repository 02/04/2018/02/05/20 [id number] Ambulatory [id number] [place] 18 g:[facility] Repository 01/24/2018 [id number] Ambulatory [id number] [place] g:[facility] Repository 01/24/2018/01/25/20 [id number] Ambulatory [id number] [place] 18 g:[facility] Repository 12/11/2017 [id number] Ambulatory AMBWHMHBuild [place] ing:[facility] Repository 12/11/2017 [id number] Ambulatory AMBWHMHBuild [place] ing:[facility] Repository 11/23/2017 [id number] Ambulatory [id number] [place] g:[facility] Repository 11/23/2017/11/24/19 [id number] Ambulatory [id number] [place] 18 g:[facility] Repository 09/19/2017 [id number] Ambulatory [id number] [place] g:[facility] Repository 09/19/2017/09/20/19 [id number] Ambulatory [id number] [place] 18 g:[facility] Repository 07/20/2017 [id number] Ambulatory [id number] [place] g:[facility] Repository 07/20/2017/07/20/19 [id number] Ambulatory [id number] [facility] 18 g:[facility] Repository 07/20/2017 [id number] Ambulatory AMBWHSTBuild [facility] ing:[facility] General oom: [facility] Repository 07/20/2017/07/20/19 [id number] Ambulatory AMBWHSTBuild [facility] 18 ing:AMBWHSTR General oom: [facility] Repository 07/17/2017 [id number] Ambulatory AMBWHMHBuild [facility] ing:[facility] Repository PAYERS PAYERS ENCOUNTER GUARANTOR PAYER SUBSCRIBER SOURCE 06/11/2018 MASON Acekrman Primary MASON HAASB: Gee [id number] Insurance:MEDICAL [id number] [facility], Number: [place]ository [place] [id number]: [id number] Date:[id number] [address] () [address], [place] [address]JE: 06/11/2018 Secondary NOT GIVENUNK [place] Insurance:SELF PAY [facility] Number: Effective Repository Date:2018-06-11 03/28/2018 MASON HAASB: Primary MASON HAASB: [facility] Insurance:[facility] [id number] [place] [address], Number: Effective [facility], Repository [place] [address]Orz: Date:2018-03-28 - [place] ~[id number]~~tenzin 40 (HP)Tel: Name:CPO LEIGH [email or web address]: [address], [place] ~(4 (WP) [phone]: [phone] (HP)Tel: [phone] (WP) 03/26/2018 MASON HAASB: Primary MASON HAASB: [facility] Insurance:[facility] [id number] [place] [address] [place], Number: Effective [place], Repository [place] [address]Xhf: Date:2008-06-25 - [place] ~(4 [id number]~~mason.ismael 40 (HP)Tel: Name:CPO REESE [email or web address]: [address], [place] ~(4 (WP) [phone]: [phone] (HP)Tel: [phone] (WP) 03/18/2018 MASON STRICKLANDDOB: Primary MASON L HOOKDOB: [facility] Insurance:MEDICAL [id number] [address], Number: Effective [place] Repository [place] [address]Plu: Date:2008-06-25 - [place] ~(4 [id number]~~mason.ismael 40 (HP)Tel: Name:CPO REESE [email or web address]: [address] [place] [address], [place] ~(4 (WP) [phone]: [phone] (HP)Tel: [phone] (WP) 03/05/2018 MASON HAASB: Primary MASON STRICKLANDDOB: [facility] Insurance:MEDICAL [id number] [address], Number: Effective [place], Repository [place] [address]Tdr: Date:2008-06-25 - [place] ~(4 [id number]~~mason.ismael 40 (HP)Tel: Name:CPO REESE [email or web address]: [address], [place] ~(4 (WP) [phone]: [phone] (HP)Tel: [phone] (WP)
== END ==
PROVIDERS: Referring Provider Urology; Visit Provider Urology
DX: R30.0 Dysuria (principal); N32.9 Bladder disorder, unspecified
CPT/HCPCS: 87086; 87088

== ENCOUNTER 2019-11-18 06:05 | Day surgery (SDC) | payer OTHER, SELFPAY ==
[2019-11-18] VITALS (9 sets, daily range): BP systolic 112–136; BP diastolic 66–88; PULSE 92–114; RESP 16–18; TEMP 36.1–37.1; O2SAT 95–100; BMI 25.6
--- NOTE | 2019-11-18 | BLA_PTH ---
PATIENT: VON STRICKLAND LOC: [facility] [place] U#:[id number] AGE/SX: 54/F ROOM: RE11/18/[address]: Dr. Angelia Rodríguez MD : [id number] BED: DIS: 11/18/2019 SPEC #: [id number] RECD: 11/18/19 11:53 STATUS: CAROLE JARAMILLO #: [id number] ARLEY: 11/18/19 00:[address]: Angelia Rodríguez DEPT: SURGICAL PATHOLOGY RECD BY: Kwabena Andrews Tissues: Urinary bladder, NOS Procedures: Surgery Specimen Level IV HEADER OPERATION: Cystoscopy, bladder biopsy with fulguration PRE-OP DIAGNOSIS: Interstitial cystitis; bladder pain, urinary tract infection TISSUE SUBMITTED: Bladder biopsy MICROSCOPIC DIAGNOSIS Bladder, biopsy: A fragment urethral mucosa with mild chronic inflammation and reactive changes. Negative for malignancy. See comment. STEPHANIE:dorian 11/19/19 COMMENT Detrusor muscle is not seen in the submitted specimen. Case has been reviewed in consultation with Dr. Cleaning who concurs with the above diagnosis. IDC:AM MICROSCOPIC DESCRIPTION Slides are reviewed. GROSS DESCRIPTION Received in fixative is one container labeled with the patient's name and designated bladder biopsy. The specimen consists of one irregular fragment of light oropeza soft tissue that measures 0.1 x <0.1 x <0.1 cm. The specimen is totally submitted in one cassette. / AM:dorian 11/18/19 TC:3 CPT: 81630
--- NOTE | 2019-11-18 06:09 | EKG12_ITS ---
Test Reason : PRE OP Blood Pressure : / mmHG Vent. Rate : 081 BPM Atrial Rate : 081 BPM P-R Int : 152 ms QRS Dur : 074 ms QT Int : 370 ms P-R-T Axes : 068 064 063 degrees QTc Int : 429 ms Normal sinus rhythm Normal ECG Confirmed by PARMINDER OLIVER, YENY ([id number]), editor farm journal LUIGI ENCISO ([id number]) on 11/20/2019 3:16:20 PM Referred By: Angelia Rodríguez Confirmed By:YENY ZURITA MD
[2019-11-18] MEDS: Lactated Ringers 1,000 ML 100 ML IV ×2 (07:05→08:40)
[2019-11-18 07:11] LABS: Hematocrit 41.1 % (37-47); Hemoglobin 13.9 g/dL (12.0-15.0); Mean Corp Hgb Conc 33.8 g/dL (32-36); Mean Corpuscular Hgb 30.2 pg (27.0-32.0); Mean Corpuscular Volume 89.3 fL (81-99); Mean Platelet Vol. 9.2 fl (6.2-12.0); Platelet Count 227 K/mm3 (150-450); RBC Distribution Width CV 12.2 % (11.6-14.6); RBC Distribution Width SD 39.6 fl (35.1-43.9); White Blood Count 4.4 K/mm3 (4.4-11.0)
[2019-11-18 07:14] LABS: Bacteria 0 SEEN /hpf (None Seen); Mucous, Urine 0 SEEN /hpf (<or=2+)
[2019-11-18 07:20] LABS: Color, Urine Yellow (Yellow); Glucose, Dipstick Normal (Normal); Ketone-Dipstick Negative (Negative); Leukocyte Esterase-Dipstick 25 /ul (Negative); Nitrite-Dipstick Negative (Negative); Occult Blood-Urine 10 /ul (Negative); Protein-Dipstick Negative (Negative); Urine Bilirubin Dipstick Negative (Negative); Urine Clarity Clear (Clear); Urine Urobilinogen Normal (Normal)
[2019-11-18 07:23] LABS: ALB/GLOB Ratio 1.4 RATIO (0.9-2.4); AST(SGOT) 26 U/L (15-37); Alanine Aminotransfer ALT/SGPT 36 U/L (13-56); Albumin, Serum 4.3 g/dL (3.2-5.0); Alkaline Phosphatase 105 U/L (45-117); Anion Gap 7 (5-15); BUN 16 mg/dL (7-18); BUN/Creat Ratio 23.3 RATIO (10-20); Calcium,Total 9.2 mg/dL (8.5-10.1); Chloride 103 mmol/L (98-107); Creatinine, Serum 0.69 mg/dL (0.55-1.02); EST Glomerular Filtration Rate 95 mL/min (>60); Est Glom Filt Rate - Afr Amer 115 mL/min (>60); Estimated Creatinine Clearance 75.43 ml/min; Globulin 3.1 g/dL (2.2-4.2); Glucose 104 mg/dL (74-106); Potassium 3.9 mmol/L (3.5-5.1); Protein, Total 7.4 g/dL (6.4-8.2); Sodium Level 138 mmol/L (136-145)
[2019-11-18 07:26] LABS: Red Blood Cells-Urine 0-5 SEEN /hpf (0-5); Squamous Epithelial Cells - UA 0-5 SEEN /hpf (5-10); White Blood Cells 0-5 SEEN /hpf (0-5)
[2019-11-18 07:27] LABS: International Normalized Ratio 1.1; Partial Thromboplast Time 35.9 Seconds (24.1-36.2); Prothrombin Time (Protime)PT. 13.5 SECONDS (11.7-14.9)
--- NOTE | 2019-11-18 08:08 | PCM.HP.STD ---
Problem List (1) Interstitial cystitis Status: Chronic (2) Urinary tract infection Status: Acute (3) Chronic bladder pain Status: Acute History of Present Illness Date of Admission: 11/18/19 Chief Complaint: bladder pain with recurrent urinary tract infections The patient is a 54 year old F that I have been managing for interstitial cystitis for several years. Recently she has had a string of urinary tract infections with increased bladder pain and has been seen in the office. Symptoms have continued despite medical management and she now presents for cystoscopy with possible biopsy. Risks benefits and alternatives were discussed including the possibility of COVID-19 infection. She understands and desires to proceed Past Medical History Past Medical History (Chronic Problems): Chronic Problems Interstitial cystitis (Chronic) Allergies morphine Allergy (Verified 11/18/19 06:35) Swelling sulfamethoxazole [From Bactrim] Adverse Reaction (Verified 11/18/19 06:35) Nausea trimethoprim [From Bactrim] Adverse Reaction (Verified 11/18/19 06:35) Nausea Home Medications: Ambulatory Orders Medication Instructions Recorded Calcium Polycarbophil [Fibercon] 1,250 mg PO DAILY 11/14/19 D-Mannose 2 cap PO BID 11/14/19 Dexlansoprazole [Dexilant] 60 mg PO DAILY 11/14/19 Famotidine [Acid Controller] 20 mg PO BID 11/14/19 Lactobacillus Rhamnosus GG 1 ea PO DAILY 11/14/19 [Culturelle] Lifitegrast [Xiidra] 1 ea OP BID 11/14/19 Sertraline HCl [Zoloft] 50 mg PO QHS 11/14/19 Trospium Chloride [Sanctura Xr] 60 mg PO DAILY 11/14/19 Ciprofloxacin [Cipro] 500 mg PO BID 11/18/19 Smoking Status: Never smoker Tobacco Use: Non-smoker Review of Systems Constitutional: Denies: Anorexia, Chills, Fever Eyes: Denies: Vision Change HEENT: Denies: Visual Changes Cardiovascular: Denies: Chest Pain, Chest Pressure Respiratory: Denies: Cough, Shortness of Breath Gastrointestinal: Reports: Nausea. Denies: Abdominal Pain, Vomiting Genitourinary: Reports: Dysuria, Frequency, Urgency Gynecological: Denies: Vaginal discharge Musculoskeletal: Denies: Muscle pain Skin: Denies: Wounds Neurological: Denies: Difficulty swallowing Endocrine: Denies: Change in Body Habitus Hematologic/ Lymphatic: Denies: Adenopathy VTE Information - Inpt Only VTE Present on Admission: Yes VTE Mechan Device Prophylaxis: SCD's VTE Pharm Prophylaxis ordered?: No Reason prophylaxis not ordered:: Treatment Not Indicated Patient Problems: Active and Suspected Problems Urinary tract infection (Acute) Chronic bladder pain (Acute) - Physical Exam Vitals/I&O's: Vital Signs Temp Pulse Resp BP Pulse Ox 97.5 F L 107 H 18 136/75 H 100 11/18/19 06:39 11/18/19 06:39 11/18/19 06:39 11/18/19 06:39 11/18/19 06:39 Oxygen Delivery Method Room Air Weight: 63.6 kg Body Mass Index (BMI) 25.6 General: Alert, Oriented x3, Cooperative, No apparent distress HEENT: Atraumatic, Normocephalic Oral: Moist Mucosa Neck: Supple, Trachea Midline Lungs: Clear to auscultation, Normal air movement Cardiovascular: Regular rate, Regular Rhythm Abdomen: Soft, Non Tender, Non-Distended Extremities: No clubbing Skin: No rashes Musculoskeletal: No Muscle Wasting Neurological: Cranial nerves II-XII grossly intact, Neuro grossly intact Psych/Mental Status: Normal Affect, Anxious Microbiology Past 72 Hours 11/17/19 17:17 Mucosa - Nasopharyngeal Coronavirus COVID-19 PCR - Final Laboratory Results 11/18/19 07:00: WBC 4.4, RBC 4.60, Hgb 13.9, Hct 41.1, MCV 89.3, MCH 30.2, MCHC 33.8, RDW Std Deviation 39.6, RDW Coeff of Curtis 12.2, Plt Count 227, MPV 9.2 11/18/19 07:00: PT 13.5, INR 1.1, APTT 35.9 11/18/19 07:00: Sodium 138, Potassium 3.9, Chloride 103, Carbon Dioxide 28.0, Anion Gap 7, BUN 16, Creatinine 0.69, Estim Creat Clear Calc 75.43, Est GFR (MDRD) Af Amer 115, Est GFR (MDRD) Non-Af 95, BUN/Creatinine Ratio 23.3 H, Glucose 104, Calcium 9.2, Total Bilirubin 0.50, AST 26, ALT 36, Alkaline Phosphatase 105, Total Protein 7.4, Albumin 4.3, Globulin 3.1, Albumin/Globulin Ratio 1.4 11/18/19 07:10: Urine Color Yellow, Urine Clarity Clear, Urine pH 6.0, Ur Specific Robbins 1.020, Urine Protein Negative, Urine Glucose (UA) Normal, Urine Ketones Negative, Urine Occult Blood 10 H, Urine Nitrite Negative, Urine Bilirubin Negative, Urine Urobilinogen Normal, Ur Leukocyte Esterase 25 H, Urine RBC 0-5 SEEN, Urine WBC 0-5 SEEN, Ur Squamous Epith Cells 0-5 SEEN, Urine Bacteria 0 SEEN, Urine Mucus 0 SEEN Assessment/Plan All Active Problems Urinary tract infection (Acute) Chronic bladder pain (Acute) Cystoscopy, possible hydrodistention, possible bladder biopsy with fulguration Essential Procedure Criteria Procedure Essential: Yes Criteria Note: On 09/09/2019 the [facility] ([facility]) Public Order signed by [facility] Director Mary Lou Ledesma M.D., regarding the Management of Non-Essential Surgeries and Procedures for the purpose of preserving Personal Protective Equipment (PPE) and critical hospital capacity and resources within [place] went into effect as of 09/10/2019 at 5:00PM. According to the [facility] Public Order: This action will remain in full force and effect until the State of Emergency declared by the Governor no longer exists or the Director of the [facility] rescinds or modifies this Order.. This [facility] order stated all non-essential or elective surgeries and procedures that utilize PPE should be delayed unless there is undue risk to the current or future health of a patient. After reviewing the aforementioned [facility] Public Order and the patients clinical case, I have determined that the scheduled procedure meets the criteria to go forward. Risk to Patient if Procedure Delayed: Presence of severe symptoms causing an inability to perform ADL's - Severe dysuria and bladder pain, worsening
--- NOTE | 2019-11-18 08:13 | PCM.OPRPT ---
Problem List (1) Interstitial cystitis Status: Chronic (2) Urinary tract infection Status: Acute (3) Chronic bladder pain Status: Acute Report of Operation Date of Procedure: 11/18/19 Pre-Operative Diagnosis: interstitial cystitis, bladder pain, urinary tract infections Post-Operative Diagnosis: same, and bladder mucosal lesion Surgery/Procedure Performed:: cystoscopy with hydrodistention followed by bladder biopsy with fulguration Type of Anesthesia:: General Specimen's removed: bladder biopsy x 2 Description of Procedure: The patient is a 54-year-old female with interstitial cystitis, bladder pain and urinary tract infections who presents for cystoscopy for further evaluation and management of her symptoms. Risks, benefits and alternatives were discussed preoperatively including the risk of COVID-19. She understood and agreed to proceed. The patient was taken to the operating room and placed on the operating room table. Anesthesia monitored the head, neck, airway, IV access and vital signs throughout the case. Once anesthesia was administered the patient was placed into dorsal lithotomy position was prepped and draped in usual sterile fashion. A cystourethroscopy was performed through the urethra under direct visualization. There were no ulcerations or areas of erythema identified. On the trigone there is an area approximately 5 mm in size with white changes in the mucosa. The bladder was filled to capacity and allowed to sit for 2 minutes. Upon emptying there is no terminal hematuria and the capacity was 550 cc. Upon reentry into the urinary bladder there were multiple glomerulations present. I made the decision to biopsy the area of the trigone and this was done with 2 biopsies. The area was fulgurated for hemostatic control and tissue treatment. At this time the bladder was then emptied and the patient was awakened and taken to the recovery room in good condition. There were no complications during this procedure. Grafts/Implants Used: none - Complications none - Admit VTE Documentation VTE Present on Admission: Yes VTE Mechan Device Prophylaxis: SCD's VTE Pharm Prophylaxis ordered?: No Reason prophylaxis not ordered:: Treatment Not Indicated
--- NOTE | 2019-11-18 08:22 | DCINST_ITS ---
Discharge Diet: No Restrictions Discharge Activity: Return to Normal Activity, May not drive while taking narcotic pain medications., May Shower May resume sexual activity in: 2 weeks Call your doctor if you observe: Fever of 101 or Higher, Inability to urinate, Inability to have a bowel movement, Uncontrolled pain Allergies/Adverse Reactions: Allergies morphine Allergy (Verified 11/18/19 06:35) Swelling sulfamethoxazole [From Bactrim] Adverse Reaction (Verified 11/18/19 06:35) Nausea trimethoprim [From Bactrim] Adverse Reaction (Verified 11/18/19 06:35) Nausea Medications to take at Discharge Calcium Polycarbophil [Fibercon] 1,250 mg PO DAILY 11/14/19 D-Mannose 2 cap PO BID 11/14/19 Dexlansoprazole [Dexilant] 60 mg PO DAILY 11/14/19 Famotidine [Acid Controller] 20 mg PO BID 11/14/19 Lactobacillus Rhamnosus GG [Culturelle] 1 ea PO DAILY 11/14/19 Lifitegrast [Xiidra] 1 ea OP BID 11/14/19 Sertraline HCl [Zoloft] 50 mg PO QHS 11/14/19 Trospium Chloride [Sanctura Xr] 60 mg PO DAILY 11/14/19 Ciprofloxacin [Cipro] 500 mg PO BID 11/18/19 Ciprofloxacin [Cipro] 500 mg PO BID 3 Days #6 tab 11/18/19 Oxycodone HCl/Acetaminophen [Percocet 5/325] 2 tablet PO Q8H PRN PRN 7 Days #20 tablet 11/18/19 The following prescriptions were given: Ciprofloxacin [Cipro] 500 mg PO BID 3 Days #6 tab Transmission Status: Pending to [id number] Oxycodone HCl/Acetaminophen [Percocet 5/325] 2 tablet PO Q8H PRN PRN 7 Days #20 tablet PRN Reason: Pain Transmission Status: Received by [id number] Primary Care Physician: YEE DAVID [Other] Test Results: Test results from this visit will be discussed in further detail at your follow- up appointment, if applicable. Please Follow Up With: Angelia Rodríguez MD When: in 1 week, call for appointment Proposed Discharge Date: 11/18/19
[2019-11-18] MEDS: Phenazopyridine 95 MG Tablet 190 MG PO (09:36)
== END 2019-11-18 11:41 | disposition home or self-care (01) ==
LOC: SDC 06:10 → AC 06:11
PROVIDERS: Anesthesiology; Referring Provider Urology; Visit Provider Urology
PROC: 0TBB8ZX Excision of Bladder, Via Natural or Artificial Opening Endoscopic, Diagnostic (ICD-10-PCS; CPT 52204; principal; 2019-11-18 07:20)
DX: N30.10 Interstitial cystitis (chronic) without hematuria (principal); N32.9 Bladder disorder, unspecified; Z11.59 Encounter for screening for other viral diseases; K58.9 Irritable bowel syndrome, unspecified; K21.9 Gastro-esophageal reflux disease without esophagitis; F41.9 Anxiety disorder, unspecified; Z86.2 Personal history of diseases of the blood and blood-forming organs and certain disorders involving the immune mechanism; Z87.19 Personal history of other diseases of the digestive system; Z79.899 Other long term (current) drug therapy
CPT/HCPCS: 00910; 52204; 52260; 36415; 80053; 81001; 85027; 85610; 85730; 87635; 88305; 93005; G2023; J7120; J2405; U0004